=== PATIENT | male | born 1975 | race American Indian/Alaskan Native ===

== ENCOUNTER 2017-04-27 11:10 | Day surgery (SDC) | payer MEDICAID ==
[2017-04-27] MEDS ORDERED: ZOFRAN IV PRN (11:54)
--- NOTE | 2017-04-27 11:54 | Anesthesia Day of Surgery ---
Anesthesia Day of Surgery - Day of Surgery Patient Examined: Yes Patient H&P Reviewed: Yes Patient is NPO: Yes
--- NOTE | 2017-04-27 11:54 | Anesthesia Consultation ---
Anesthesia Consult and Med Hx Date of service: 04/27/17 - Airway Anesthetic Teeth Evaluation: Good ROM Head & Neck: Adequate Mental/Hyoid Distance: Adequate Mallampati Class: Class I Intubation Access Assessment: Good - Pulmonary Exam CTA: Yes - Cardiac Exam Cardiac Exam: RRR - Pre-Operative Health Status ASA Pre-Surgery Classification: ASA3 Proposed Anesthetic Plan: General - Pulmonary Hx Asthma: Yes - Central Nervous System Hx Psychiatric Problems: No - Other Systems Hx Alcohol Use: No Hx Substance Use: No Hx Cancer: No
[2017-04-27] MEDS ORDERED: PEPCID PO NR (12:00)
[2017-04-27] MEDS ORDERED: VERSED IV NR (12:00)
[2017-04-27] MEDS ORDERED: LACTATED RINGERS 1,000 ML ONE ×4 (12:56→17:31)
[2017-04-27] MEDS ORDERED: ANCEF/STERILE WATER 2 GM/20 ML 2 GM/20 ML SYRINGE IV NR (13:00)
[2017-04-27 13:04] LABS: Hematocrit 47.3 % (35.5-45.6); Mean Corpuscular HGB Conc 34 % (32-34); Mean Corpuscular Hemoglobin 31 pg (28-32); Mean Corpuscular Volume 91 fl (84-94); Platelet Count 250 K/mm3 (140-440); Red Blood Count 5.21 M/mm3 (3.65-5.03); Red Cell Distribution Width 13.3 % (13.2-15.2); White Blood Count 6.6 K/mm3 (4.5-11.0)
[2017-04-27 13:25] LABS: Alanine Aminotransferase 27 units/L (7-56); Albumin 4.3 g/dL (3.9-5); Albumin/Globulin Ratio 1.5 %; Alkaline Phosphatase 55 units/L (35-129); Anion Gap 17 mmol/L; BUN/Creatinine Ratio 16; Blood Urea Nitrogen 16 mg/dL (9-20); Carbon Dioxide 27 mmol/L (22-30); Chloride 100.9 mmol/L (98-107); Glucose 88 mg/dL (75-100); Potassium 4.3 mmol/L (3.6-5.0); Sodium 141 mmol/L (137-145); Total Protein 7.1 g/dL (6.3-8.2)
[2017-04-27] MEDS ORDERED: SUBLIMAZE ONE ×2 (14:04→15:16)
[2017-04-27] MEDS ORDERED: DIPRIVAN 10 MG/ML IV ONE ×2 (14:04→14:32)
[2017-04-27] MEDS ORDERED: ZEMURON IV ONE ×2 (14:07→14:32)
[2017-04-27] MEDS ORDERED: QUELICIN ONE (14:07)
[2017-04-27] MEDS ORDERED: XYLOCAINE MPF 2% ONE ×2 (14:07→15:03)
[2017-04-27] MEDS ORDERED: MARCAINE 0.5% 30 ML INFILTRATI ONE (14:17)
[2017-04-27] MEDS ORDERED: NACL 0.9% IR ONE (14:27)
[2017-04-27] MEDS ORDERED: MARCAINE 0.5% INFILTRATI ONE (14:27)
[2017-04-27] MEDS ORDERED: DILAUDID ONE (14:32)
[2017-04-27] MEDS ORDERED: ZOFRAN ONE ×2 (15:11→16:00)
[2017-04-27] MEDS ORDERED: ROBINUL ONE ×2 (15:18→16:01)
[2017-04-27] MEDS ORDERED: NEOSTIGMINE ONE ×2 (15:18→16:01)
[2017-04-27] MEDS ORDERED: DECADRON ONE (16:01)
--- NOTE | 2017-04-27 16:14 | Discharge Summary ---
Short Stay Discharge Plan Activity: advance as tolerated, no driving until cleared by PCP Diet: regular Wound: per your surgeon's advice Follow up with: YARON JUAREZ MD [Primary Care Provider] - 7 Days
[2017-04-27] MEDS ORDERED: NORCO 5/325 PO PRN (16:41)
[2017-04-27] MEDS: MORPHINE IV PRN ×2 (16:44→16:58)
--- NOTE | 2017-04-27 17:21 | Post Anesthesia Evaluation ---
- Post Anesthesia Evaluation Patient Participated: Yes Airway Patent: Yes Stable Respiratory Function: Yes Temp > 96.8F: Yes Pain Manageable: Yes Adequeate Hydration: Yes Anesthesia Complications: No
--- NOTE | 2017-04-27 18:14 | Operative Report ---
PREOPERATIVE DIAGNOSIS: Left inguinal hernia. POSTOPERATIVE DIAGNOSIS: Left inguinal hernia with a portion of preperitoneal fat. PROCEDURE: Open repair of left inguinal hernia with application of Marlex mesh graft with a keyhole. ANESTHESIA: General. BLOOD LOSS: Minimal. FINDINGS: The patient had a hernia that could be seen easily with the apex of the inguinal canal. This to me measured about 4 x 4 x 3 cm. Superior to it, there is a protrusion of fatty tissue that is about 5 x 1 x 1 cm. This was excised in toto with a suture ligature used for that purpose #0 Vicryl. This examination did not reveal anything abnormal, otherwise. DESCRIPTION OF PROCEDURE: With the patient in supine position, prepped and draped in the usual fashion, I made an incision in the left inguinal area deep subcutaneous tissue all the way down to fascia, which was incised along its fibers, making sure not to injure the ilioinguinal nerve. I was able to see the herniated portion. Apparently it was a portion of the omentum, so after good exposure to make sure not to injure the ilioinguinal nerve, the repair was performed using for that purpose 0 Vicryl interrupted between the conjoined tendon medially and the reflected part of the ilioinguinal tract all the way from the apex to the area of the spermatic cord defect after which I put two more stitches superior to it. I was very much satisfied, then I made a relaxing incision medially after which a keyhole graft was applied from the apex heading North with a continuous stitch using for that purpose 0 Prolene. This was done all the way and then I went around the superior aspect of the spermatic cord with a good 2 cm. I was very much satisfied. Then another stitch of the same was used medially all around and laterally on the ilioinguinal tract area. I was very much satisfied. I did do a relaxing incision as mentioned above. After that maneuvering, the external aponeurosis was approximated using a continuous stitch of 0 Vicryl. The same for subcutaneous tissue interruptedly and the skin with george. I was very much satisfied. We had good hemostasis. I did pull the testicle inferiorly when we put the bandage. I was very much satisfied. The patient was then transferred to the recovery room in good condition. I am going to have him go home later on today. I am going to give him [place] and milk of magnesia to be taken p.o. on a regular basis. JOB# [id number] MARCE/NTS
[2017-04-27 20:25] VITALS: BP 126/85
--- NOTE | 2017-04-27 20:53 | Discharge Summary ---
FINAL CLINICAL DIAGNOSIS: Left inguinal hernia. HOSPITAL COURSE: This man was seen in my office about 2 weeks ago because of a mass in his left groin area. I saw her prior to that, but he wanted to postpone his operation, so he came today for definitive surgical intervention for repair of left inguinal hernia. This was done with application of Marlex mesh graft. He had 1 on the right side many years back. PHYSICAL EXAMINATION: GENERAL: A well-preserved healthy looking young man who is in no distress. HEAD AND NECK: Negative. CHEST: Clear. HEART: Sound normal. ABDOMEN: Flat, soft, benign. There is evidence of a soft tissue mass, it is about 5 x 5 x 6 cm located in the left inguinal area. GENITALIA: Normal male genitalia. EXTREMITIES: Showed no significant edema. IMPRESSION: Left inguinal hernia for repair. This will be done as an outpatient. JOB# [id number] MARCE/LUDY
== END 2017-04-27 19:50 | disposition home or self-care (01) ==
LOC: OR 11:10
PROVIDERS: ATTEND Surgery
DX: K40.90 Unilateral inguinal hernia, without obstruction or gangrene, not specified as recurrent (principal); J45.909 Unspecified asthma, uncomplicated
CPT/HCPCS: 36415; 49505; 80053; 85027; 88302; C1781; J0330; J0690; J1100; J1170; J2250; J2270; J2405; J2704; J2710; J3010; J7120